=== PATIENT | male | born 1950 | race Caucasian/White ===

== ENCOUNTER 2017-11-09 18:35 | Emergency (ER) | payer MEDICARE, OTHER ==
[2017-11-09] MEDS ORDERED: Sodium Chloride 0.9% 10 ML Syringe FLUSH PRN (19:36)
[2017-11-09] MEDS ORDERED: Sodium Chloride 0.9% 500 ML IV ONE (19:38)
[2017-11-09] MEDS ORDERED: Lidocaine 2% Jelly 10 ML Urojet MUCMEM ONE (19:40)
[2017-11-09] MEDS ORDERED: fentaNYL 100 MCG/2 ML SDV IVPUSH ONE ×2 (20:37→21:13)
--- NOTE | 2017-11-09 21:19 | EDM.PDOC ---
ED HPI GENERAL MEDICAL PROBLEM - General Chief Complaint: Abdominal Pain Stated Complaint: CONSTIPATION Time Seen by Provider: 11/09/17 19:00 Source of Information: Reports: Patient, Family History Limitations: Reports: No Limitations - History of Present Illness INITIAL COMMENTS - FREE TEXT/NARRATIVE: Patient presents with constipation and lower abdominal pain. Patient has a history of a complex abdominal problems in the past. He had severe diverticulitis at one point that required a colectomy. He then had complications and had to have an ostomy. The ostomy was reversed and then he had to have his gallbladder out. After the gallbladder E then had a GI bleed and was found to have an obstruction of the bowel. he has had upper and lower endoscopy since then but he was in the intensive care unit for quite some time and is concerned whether that could be starting up again today. He has nausea but no vomiting. He has taken MiraLAX on a regular basis as well as Benefiber. He had taken some [id number] cold remedies and has been on allopurinol and wonders if that might have slowed up his stools. He denies any increasing abdominal bloating. He has passed gas and some liquid stool per rectum. He has had difficulty urinating and feels pressure in the rectal area. No chest pain shortness of breath or breathing problems. No fevers chills or sweats Rectal Pain Score (Numeric/FACES): 8 - Related Data Allergies Allergy/AdvReac Type Severity Reaction Status Date / Time No Known Allergies Allergy Verified 11/09/17 19:02 MDT Home Meds: Home Meds Albuterol [Ventolin HFA] 1 puff INH ASDIRECTED 11/09/17 [History] Allopurinol [Zyloprim] 100 mg PO DAILY 11/09/17 [History] Cholecalciferol (Vitamin D3) [Vitamin D3] 5,000 units PO DAILY 11/09/17 [History ] Colchicine [Colcrys] 0.6 mg PO ASDIRECTED 11/09/17 [History] Docusate Sodium [Colace] 100 mg PO ASDIRECTED 11/09/17 [History] Fluticasone/Salmeterol [Advair 500-50] 1 puff INH BID 11/09/17 [History] Guar Gum [Benefiber] 1 tsp PO BID 11/09/17 [History] Mag Carb/Al Hydrox/Alginic Ac [Gaviscon Liquid] 0 mg PO ASDIRECTED 11/09/17 [ History] Montelukast [Singulair] 10 mg PO DAILY 11/09/17 [History] Multivitamin [Multivitamins] 1 tab PO DAILY 11/09/17 [History] Pioglitazone [Actos] 30 mg PO DAILY 11/09/17 [History] Polyethylene Glycol 3350 [MiraLAX] 8 gram PO DAILY 11/09/17 [History] RABEprazole Sodium [Aciphex] 20 mg PO BID PRN 11/09/17 [History] SitaGLIPtin [Januvia] 50 mg PO DAILY 11/09/17 [History] atorvaSTATin [Lipitor] 10 mg PO DAILY 11/09/17 [History] glipiZIDE [Glucotrol XL] 5 mg PO BID 11/09/17 [History] Past Medical History HEENT History: Reports: Cataract, Impaired Vision Cardiovascular History: Reports: High Cholesterol Respiratory History: Reports: Asthma, Bronchitis, Recurrent, PE Gastrointestinal History: Reports: Chronic Constipation, GERD, Hemorrhoids Musculoskeletal History: Reports: Gout Neurological History: Reports: Concussion Endocrine/Metabolic History: Reports: Diabetes, Type II - Infectious Disease History Infectious Disease History: Reports: Measles, Mumps - Past Surgical History GI Surgical History: Reports: Cholecystectomy, Colostomy, Other (See Below) Other GI Surgeries/Procedures: 2 bowel surgeries and reansotomosis Social & Family History - Tobacco Use Smoking Status *Q: Never Smoker - Caffeine Use Caffeine Use: Reports: Coffee, Soda - Recreational Drug Use Recreational Drug Use: No ED ROS GENERAL - Review of Systems Review Of Systems: See Below Constitutional: Denies: Fever, Chills Cardiovascular: Denies: Chest Pain, Palpitations GI/Abdominal: Reports: Abdominal Pain, Constipation, Decreased Appetite, Flatus , Nausea. Denies: Bloody Stool, Hematemesis, Melena, Vomiting Neurological: Reports: No Symptoms Psychiatric: Reports: No Symptoms ED EXAM, GI/ABD - Physical Exam Exam: See Below Exam Limited By: No Limitations General Appearance: Alert, WD/WN, No Apparent Distress, Anxious Head: Atraumatic Respiratory/Chest: No Respiratory Distress, Lungs Clear, Normal Breath Sounds Cardiovascular: Normal Peripheral Pulses, Regular Rate, Rhythm, No Edema GI/Abdominal Exam: Normal Bowel Sounds, Tender, Mass, Other (Tenderness noted in the right left lower quadrants. He has large midline scar from previous surgeries. Some fullness to the left lower quadrant on palpation. No rebound or rigidity noted.) Rectal (Males) Exam: Normal Rectal Tone, Prostate Normal, Fecal Impaction, Tenderness. No: Prostate Nodule Extremities: No Pedal Edema Neurological: Alert, Oriented Psychiatric: Normal Affect, Normal Mood Skin Exam: Warm, Dry ED ABDOMINAL/GI PROCEDURES - Additional/Other Procedure(s) Procedure(s) (Free Text): Fecal disimpaction was performed after Urojet anesthetic gel and fentanyl. Patient had good relief and had a large bowel movement and his repeat abdominal exam was improved. Patient tolerated the procedure well. No gross blood or bleeding noted. Course - Vital Signs Last Recorded V/S: Last Vital Signs Temp 97.4 F 11/09/17 18:56 MDT Pulse 106 H 11/09/17 18:56 MDT Resp 20 11/09/17 18:56 MDT BP 118/86 11/09/17 18:56 MDT Pulse Ox 98 11/09/17 18:56 MDT - Orders/Labs/Meds Orders: Active Orders 24 hr Category Date Time Status Enema [RC] ASDIRECTED Care 11/09/17 22:03 Active Peripheral IV Care [RC] . DIRECTED Care 11/09/17 19:37 Active Abdomen 2V AP Flat Upright [CR] Stat Exams 11/09/17 19:36 Taken UA W/MICROSCOPIC [URIN] Stat Lab 11/09/17 22:20 Ordered Sodium Chloride 0.9% [Saline Flush] Med 11/09/17 19:36 Active 10 ml FLUSH ASDIRECTED PRN Peripheral IV Insertion Adult [OM.PC] Stat Oth 11/09/17 19:35 Ordered Medication Orders Sodium Chloride (Saline Flush) 10 ml FLUSH ASDIRECTED PRN PRN Reason: Keep Vein Open Last Admin: 11/09/17 20:06 MDT Dose: 10 ml Labs: Laboratory Tests 11/09/17 11/09/17 Range/Units 20:04 MDT 20:04 MDT WBC 12.72 H (4.23-9.07) K/mm3 RBC 4.97 (4.63-6.08) M/mm3 Hgb 15.1 (13.7-17.5) gm/L Hct 43.6 (40.1-51.0) % MCV 87.7 (79.0-92.2) fl MCH 30.4 (25.7-32.2) pg MCHC 34.6 (32.2-35.5) g/dl RDW Std Deviation 44.2 H (35.1-43.9) fL Plt Count 152 L (163-337) K/mm3 MPV 10.8 (9.4-12.3) fl Neut % (Auto) 87.4 H (34.0-67.9) % Lymph % (Auto) 4.9 L (21.8-53.1) % Burke % (Auto) 6.1 (5.3-12.2) % Eos % (Auto) 0.7 L (0.8-7.0) Baso % (Auto) 0.2 (0.1-1.2) % Neut # (Auto) 11.13 H (1.78-5.38) K/mm3 Lymph # (Auto) 0.62 L (1.32-3.57) K/mm3 Burke # (Auto) 0.77 (0.30-0.82) K/mm3 Eos # (Auto) 0.09 (0.04-0.54) K/mm3 Baso # (Auto) 0.02 (0.01-0.08) K/mm3 Manual Slide Review Normal smear Sodium 141 (136-145) mEq/L Potassium 4.0 (3.5-5.1) mEq/L Chloride 106 (98-107) mEq/L Carbon Dioxide 23 (21-32) mEq/L Anion Gap 16.0 H (5-15) BUN 21 H (7-18) mg/dL Creatinine 1.5 H (0.7-1.3) mg/dL Est Cr Clr Drug Dosing 55.56 mL/min Estimated GFR (MDRD) 47 (>60) mL/min BUN/Creatinine Ratio 14.0 (14-18) Glucose 177 H (80-115) mg/dL Calcium 8.9 (8.5-10.1) mg/dL Total Bilirubin 0.6 (0.2-1.0) mg/dL AST 28 (15-37) U/L ALT 35 (16-63) U/L Alkaline Phosphatase 76 (46-116) U/L Total Protein 7.0 (6.4-8.2) g/dl Albumin 4.1 (3.4-5.0) g/dl Globulin 2.9 gm/dL Albumin/Globulin Ratio 1.4 (1-2) Meds: Medications Generic Name Dose Route Start Last Admin Trade Name Cami PRN Reason Stop Dose Admin Sodium Chloride 10 ml 11/09/17 19:36 MDT 11/09/17 20:06 MDT Saline Flush FLUSH 10 ml ASDIRECTED PRN Administration Keep Vein Open Discontinued Medications Generic Name Dose Route Start Last Admin Trade Name Cami PRN Reason Stop Dose Admin Fentanyl 50 mcg 11/09/17 20:37 MDT 11/09/17 20:43 MDT Sublimaze IVPUSH 11/09/17 20:38 MDT 50 mcg ONETIME ONE Administration Fentanyl 50 mcg 11/09/17 21:13 MDT 11/09/17 21:45 MDT Sublimaze IVPUSH 11/09/17 21:14 MDT 50 mcg ONETIME ONE Administration Sodium Chloride 500 mls @ 250 mls/hr 11/09/17 19:38 MDT 11/09/17 20:05 MDT Normal Saline IV 11/09/17 21:37 MDT 250 mls/hr .BOLUS ONE Administration Lidocaine HCl 10 ml 11/09/17 19:40 MDT 11/09/17 20:07 MDT Xylocaine 2% Jelly MUCMEM 11/09/17 19:41 MDT 10 ml ONETIME ONE Administration - Radiology Interpretation Free Text/Narrative:: Abdominal views of the abdomen show a lot of stool in the right lower quadrant and in the rectosigmoid area. There is no obvious air-fluid levels or dilated loops of small bowel or large bowel. There is no free air under the diaphragm. - Re-Assessments/Exams Free Text/Narrative Re-Assessment/Exam: 11/09/17 21:19 Blood sugar was 177 creatinine is 1.5 white count is 12,700 calcium is normal Free Text/Narrative Re-Assessment/Exam: 11/09/17 22:45 Patient feeling much better reviewed the x-ray films and labs with him. There is no hypocalcemia. Patient will increase his MiraLAX to twice a day, follow up with his primary care physician and return for caution is given doubt L obstruction, doubt diverticulitis or acute appendicitis. Departure - Departure Time of Disposition: 22:45 Disposition: Home, Self-Care 01 Preliminary Cause of *Q: Cardiac Arrest Condition: Fair Clinical Impression: Fecal impaction in rectum Abdominal pain Qualifiers: Abdominal location: lower abdomen, unspecified Qualified Code(s): R10.30 - Lower abdominal pain, unspecified Constipation Qualifiers: Constipation type: outlet dysfunction constipation Qualified Code(s): K59.02 - Outlet dysfunction constipation - Discharge Information Instructions: Constipation, Adult, Abdominal Pain, Adult, [id number], Fecal Impaction Referrals: PCP,Not In Area [Primary Care Provider] - Forms: ED Department Discharge Additional Instructions: Increase MiraLAX to twice a day, continue to add fiber in your diet with foods and drink plenty of fluids. Return if fevers, increasing abdominal pain, vomiting, unable to pass gas or stool per rectum, worse - My Orders Last 24 Hours: My Active Orders 11/09/17 19:35 Peripheral IV Insertion Adult [OM.PC] Stat 11/09/17 19:36 Abdomen 2V AP Flat Upright [CR] Stat Sodium Chloride 0.9% [Saline Flush] 10 ml FLUSH ASDIRECTED PRN 11/09/17 19:37 Peripheral IV Care [RC] . DIRECTED 11/09/17 22:03 Enema [RC] ASDIRECTED 11/09/17 22:20 UA W/MICROSCOPIC [URIN] Stat - Assessment/Plan Last 24 Hours: My Active Orders 11/09/17 19:35 Peripheral IV Insertion Adult [OM.PC] Stat 11/09/17 19:36 Abdomen 2V AP Flat Upright [CR] Stat Sodium Chloride 0.9% [Saline Flush] 10 ml FLUSH ASDIRECTED PRN 11/09/17 19:37 Peripheral IV Care [RC] . DIRECTED 11/09/17 22:03 Enema [RC] ASDIRECTED 11/09/17 22:20 UA W/MICROSCOPIC [URIN] Stat
== END 2017-11-09 22:55 | disposition home or self-care (01) ==
LOC: SUPCPDRO 18:35 → JD.ED 18:35
DX: K56.41 Fecal impaction (principal); E78.00 Pure hypercholesterolemia, unspecified; J45.909 Unspecified asthma, uncomplicated; E11.9 Type 2 diabetes mellitus without complications; Z79.899 Other long term (current) drug therapy; Z79.84 Long term (current) use of oral hypoglycemic drugs
CPT/HCPCS: 36415; 74019; 80053; 81001; 85025; 96361; 96374; 96376; 99284; J3010; J7040; J7050